=== PATIENT | male | born 1970 | race Caucasian/White ===

== ENCOUNTER 2021-07-01 10:31 | Day surgery (SDC) | payer OTHER, SELFPAY ==
[~2021-07-01] VITALS: Ht 165.1 cm; Wt 76.2 kg
[~2021-07-01 10:31] MED LIST: CEFAZOLIN SOD 2 GM in D5W 50 ML IV ONE
[2021-07-01] MEDS ORDERED: PHENYLEPHRINE HCL 10 MG/ML VIAL (NEOSYNEPHRINE) ONE (12:26)
[2021-07-01] MEDS ORDERED: METOCLOPRAMIDE HCL 10 MG/2 ML VIAL ONE (12:26)
[2021-07-01] MEDS ORDERED: LR 1,000 ML IV.SOLN IV ONE (12:26)
[2021-07-01] MEDS ORDERED: MIDAZOLAM HCL 5 MG/5 ML VIAL ONE (12:26)
[2021-07-01] MEDS ORDERED: LIDOCAINE/EPI 1% 1:100000 20 ML VIAL INJ ONE (12:26)
[2021-07-01] MEDS ORDERED: BUPIVACAINE /EPINEPHRINE/PF 0.25% 30 ML VIAL INJ ONE (12:26)
[2021-07-01] MEDS ORDERED: fentaNYL CITRATE 250 MCG/5 ML AMP ONE (12:26)
[2021-07-01] MEDS ORDERED: KETOROLAC TROMETHAMINE 30 MG VIAL ONE ×2 (12:26→15:10)
[2021-07-01] MEDS ORDERED: CEFAZOLIN 2 GM IVPB PREMIX 50 ML IV ONE (12:26)
[2021-07-01] MEDS ORDERED: SEVOFLURANE 15 MIN GAS INH ONE (12:26)
[2021-07-01] MEDS ORDERED: PROPOFOL 200MG/ 20ML VIAL (DIPRIVAN) IV ONE (12:26)
[2021-07-01] MEDS ORDERED: ROCURONIUM BROMIDE 10 MG/ML (ZEMURON) ONE (12:26)
[2021-07-01] MEDS ORDERED: ONDANSETRON HCL 4 MG/2 ML VIAL ONE (12:26)
[2021-07-01] MEDS ORDERED: GLYCOPYRROLATE 0.2 MG/ML VIAL ONE (12:26)
[2021-07-01] MEDS ORDERED: BUPIVACAINE LIPOSOME/PF 266 MG/20 ML VIAL INFIL ONE (13:21)
[2021-07-01] MEDS ORDERED: KETOROLAC TROMETHAMINE 30 MG VIAL IVP PRN (13:45)
[2021-07-01] MEDS ORDERED: ONDANSETRON HCL 4 MG/2 ML VIAL IVP PRN (13:45)
[2021-07-01] MEDS ORDERED: LR 1,000 ML IV SCH (13:45)
[2021-07-01] MEDS ORDERED: ACETAMINOPHEN I.V. 1000 MG 100 ML IV ONE ×2 (15:43→16:00)
[2021-07-01] MEDS ORDERED: IBUPROFEN 800 MG TABLET PO ONE (17:00)
[2021-07-01 17:11] VITALS: BP_SYST 112
== END 2021-07-01 19:00 | disposition home or self-care (01) ==
LOC: SDS 10:31 → SMU 10:34 → SDS 19:00
PROVIDERS: ATTEND Surgery
DX: K40.30 Unilateral inguinal hernia, with obstruction, without gangrene, not specified as recurrent (principal); Z20.822 Contact with and (suspected) exposure to COVID-19; Z79.899 Other long term (current) drug therapy
CPT/HCPCS: 36415; 49650; 64488; 87426; C1781; C9290; J0131; J0690 ×2; J1885; J2250; J2370; J2405; J2704; J2765; J3010; J3490 ×2; J7060; J7120; S2900